=== PATIENT | female | born 1945 | race Caucasian/White ===

== ENCOUNTER 2022-02-02 16:31 | Emergency (ER) | payer MEDICARE, BC ==
[2022-02-02] MEDS ORDERED: fentaNYL 100 MCG/2 ML SDV IM ONE (16:53)
[2022-02-02] MEDS ORDERED: Cyclobenzaprine 10 MG Tab PO ONE (17:01)
[2022-02-02] MEDS ORDERED: HYDROmorphone 1 MG/ML Syringe IM ONE (17:30)
[2022-02-02 17:40] VITALS: BP 116/49; PULSE 66
== END 2022-02-02 18:34 | disposition home or self-care (01) ==
LOC: JP.ED 16:31
DX: S52.591A Other fractures of lower end of right radius, initial encounter for closed fracture (principal); S52.611A Displaced fracture of right ulna styloid process, initial encounter for closed fracture; I10 Essential (primary) hypertension; K21.9 Gastro-esophageal reflux disease without esophagitis; Z86.73 Personal history of transient ischemic attack (TIA), and cerebral infarction without residual deficits; Z88.5 Allergy status to narcotic agent; Z79.899 Other long term (current) drug therapy; Z79.01 Long term (current) use of anticoagulants; Z87.891 Personal history of nicotine dependence; W18.30XA Fall on same level, unspecified, initial encounter; Y92.009 Unspecified place in unspecified non-institutional (private) residence as the place of occurrence of the external cause
CPT/HCPCS: 29125; 73110-26-RT; 73110-RT; 96372; 99282; 99283-25; A9270-GY; J1170; J3010

== ENCOUNTER 2022-11-23 20:57 | Emergency (ER) | payer MEDICARE, BC ==
[2022-11-23 22:07] LABS: ESTIMATED GFR 76 mL/min (>60)
[2022-11-23 22:24] LABS: CORONAVIRUS COVID-19 NAA NEGATIVE (NEGATIVE)
[2022-11-23] MEDS ORDERED: Furosemide 20 MG Tab PO ONE (22:57)
[2022-11-23] MEDS ORDERED: Metoprolol Tartrate 25 MG Tab PO ONE (23:18)
[2022-11-24] MEDS ORDERED: Melatonin 3 MG Tab PO ONE (00:29)
[2022-11-24] MEDS ORDERED: Furosemide 20 MG Tab PO ONE (01:49)
[2022-11-24 05:57] LABS: ESTIMATED GFR 76 mL/min (>60)
[2022-11-24] MEDS ORDERED: Furosemide 40 MG Tab PO SCH (08:00)
[2022-11-24] MEDS ORDERED: Metoprolol Tartrate 25 MG Tab PO SCH (09:00)
[2022-11-24] MEDS ORDERED: FLUoxetine 20 MG Cap PO SCH (09:00)
[2022-11-24 10:32] VITALS: BP 115/86; PULSE 69
[2022-11-24] MEDS ORDERED: Warfarin 2.5 MG Tab PO SCH (13:00)
== END 2022-11-24 10:50 | disposition home or self-care (01) ==
LOC: JP.ED 20:57
DX: R10.30 Lower abdominal pain, unspecified (principal); I11.0 Hypertensive heart disease with heart failure; I50.9 Heart failure, unspecified; R94.5 Abnormal results of liver function studies; R31.29 Other microscopic hematuria; R09.02 Hypoxemia; K21.9 Gastro-esophageal reflux disease without esophagitis; Z79.01 Long term (current) use of anticoagulants; Z20.822 Contact with and (suspected) exposure to COVID-19
CPT/HCPCS: 0241U; 36415; 51702; 71046; 76705; 80053; 81001; 83605; 83880; 84145; 85025; 85379; 85610; 86140; 99284; A9270; C8929

== ENCOUNTER 2023-10-25 12:08 | Emergency (ER) | payer MEDICARE, BC ==
[2023-10-25] MEDS ORDERED: Sodium Chloride 0.9% 10 ML Syringe FLUSH PRN (12:23)
[2023-10-25] MEDS ORDERED: Sodium Chloride 0.9% 1,000 ML IV ONE (12:25)
[2023-10-25 12:53] LABS: BASOPHILS PERCENT AUTO 0.1 % (0.1-1.3); EOSINOPHILS ABSOLUTE AUTO 0.12 K/uL (0.00-0.40); EOSINOPHILS PERCENT AUTO 1.5 % (0.0-5.4); HEMATOCRIT 39.8 % (34.3-46.0); HEMOGLOBIN 12.9 g/dL (11.2-15.5); IMMATURE GRAN ABSOLUTE AUTO 0.03 K/uL (0.00-0.23); IMMATURE GRAN PERCENT AUTO 0.4 % (0.0-0.7); LYMPHOCYTES ABSOLUTE AUTO 1.47 K/uL (0.8-3.3); LYMPHOCYTES PERCENT AUTO 17.9 % (11.4-47.7); MEAN CORPUSCULAR HEMOGLOBIN 31.5 pg (31.6-35.5); MEAN CORPUSCULAR HGB CONC 32.4 g/dL (31.6-35.5); MEAN CORPUSCULAR VOLUME 97.1 fL (81.4-99.0); MONOCYTES ABSOLUTE AUTO 0.54 K/uL (0.20-0.90); MONOCYTES PERCENT AUTO 6.6 % (3.3-12.6); NEUTROPHILS ABSOLUTE AUTO 6.02 K/uL (1.0-7.6); NEUTROPHILS PERCENT AUTO 73.5 % (40.0-78.1); PLATELET COUNT,PLT 190 K/uL (130-375); WHITE BLOOD CELL COUNT,WBC 8.2 K/uL (3.2-11.0)
[2023-10-25 12:55] LABS: BASOPHILS ABSOLUTE AUTO 0.01 K/uL (0.00-0.10)
[2023-10-25 13:07] LABS: CORONAVIRUS COVID-19 NAA NEGATIVE (NEGATIVE); INFLUENZA A NAA NEGATIVE (NEGATIVE); INFLUENZA B NAA NEGATIVE (NEGATIVE); RESPIRATORY SYNCYTIAL VIR NAA NEGATIVE (NEGATIVE)
[2023-10-25 13:20] LABS: LACTIC ACID 1.2 mmol/L (0.4-2.0)
[2023-10-25 13:26] LABS: C-REACTIVE PROTEIN 4.62 mg/dL (<0.50); CALCIUM 8.5 mg/dL (8.5-10.1); CREATININE 0.7 mg/dL (0.6-1.0); EST CRCL DRUG DOSING (CG) 50.79 mL/min; POTASSIUM,K 3.9 mmol/L (3.6-5.2)
[2023-10-25] MEDS ORDERED: Sodium Chloride 0.9% 10 ML Syringe FLUSH ONE (13:39)
[2023-10-25] MEDS ORDERED: Iopamidol 755 Mg/ML 100 ML Bottle IV ONE (13:39)
[2023-10-25] MEDS ORDERED: Sodium Chloride 0.9% 100 ML IV SCH (13:45)
[2023-10-25 16:15] VITALS: BP 142/109; PULSE 91
== END 2023-10-25 16:59 | disposition home or self-care (01) ==
LOC: JP.ED 12:08
DX: J84.9 Interstitial pulmonary disease, unspecified (principal); I10 Essential (primary) hypertension; E78.5 Hyperlipidemia, unspecified; Z79.01 Long term (current) use of anticoagulants; Z20.822 Contact with and (suspected) exposure to COVID-19; Z88.5 Allergy status to narcotic agent; Z79.899 Other long term (current) drug therapy
CPT/HCPCS: 0241U; 36415; 71045; 71275; 80048; 83605; 84145; 84484; 85025; 86140; 87040; 93005; 96360; 96361; 99285; J3490; J7030; Q9967

== ENCOUNTER 2023-12-12 15:43 | Emergency (ER) | payer MEDICARE, BC ==
[2023-12-12 17:07] LABS: BASOPHILS PERCENT AUTO 0.2 % (0.1-1.3); EOSINOPHILS PERCENT AUTO 1.1 % (0.0-5.4); HEMATOCRIT 38.7 % (34.3-46.0); HEMOGLOBIN 12.5 g/dL (11.2-15.5); IMMATURE GRAN PERCENT AUTO 0.2 % (0.0-0.7); LYMPHOCYTES ABSOLUTE AUTO 1.79 K/uL (0.8-3.3); LYMPHOCYTES PERCENT AUTO 20.3 % (11.4-47.7); MEAN CORPUSCULAR HEMOGLOBIN 30.9 pg (31.6-35.5); MEAN CORPUSCULAR HGB CONC 32.3 g/dL (31.6-35.5); MEAN CORPUSCULAR VOLUME 95.6 fL (81.4-99.0); MONOCYTES ABSOLUTE AUTO 0.51 K/uL (0.20-0.90); MONOCYTES PERCENT AUTO 5.8 % (3.3-12.6); NEUTROPHILS ABSOLUTE AUTO 6.37 K/uL (1.0-7.6); NEUTROPHILS PERCENT AUTO 72.4 % (40.0-78.1); PLATELET COUNT,PLT 291 K/uL (130-375); RED BLOOD CELL COUNT 4.05 M/uL (3.77-5.24); WHITE BLOOD CELL COUNT,WBC 8.8 K/uL (3.2-11.0)
[2023-12-12 17:12] LABS: BASOPHILS ABSOLUTE AUTO 0.02 K/uL (0.00-0.10); IMMATURE GRAN ABSOLUTE AUTO 0.02 K/uL (0.00-0.23)
[2023-12-12 17:23] LABS: ANION GAP 8.3 mmol/L (5.0-14.0); CREATININE 0.7 mg/dL (0.6-1.0); EST CRCL DRUG DOSING (CG) 48.34 mL/min; POTASSIUM,K 4.5 mmol/L (3.6-5.2)
[2023-12-12 17:31] LABS: INR 1.9; PROTHROMBIN TIME 18.9 sec (9.2-10.6)
[2023-12-12 18:43] VITALS: BP 103/79; PULSE 102
== END 2023-12-12 21:00 | disposition home or self-care (01) ==
LOC: JP.ED 15:43
DX: S09.90XA Unspecified injury of head, initial encounter (principal); Z88.8 Allergy status to other drugs, medicaments and biological substances; Z79.01 Long term (current) use of anticoagulants; Z79.899 Other long term (current) drug therapy; Z87.891 Personal history of nicotine dependence; W19.XXXA Unspecified fall, initial encounter
CPT/HCPCS: 36415; 70450; 80048; 85025; 85610; 85730; 99284